=== PATIENT | female | born 1970 | race Caucasian/White ===

== ENCOUNTER → 2017-01-06 | Outpatient (CLI) | payer OTHER ==
[~2017-01-06] MED LIST: /CELE20CA; /CELE20CA PO; /ONDA4TA; ACET65TA OR; ALLE25CA OR; ALLE25CA PO; AMIT100T; AMIT10TA2 OR; AMIT50TA PO; ATIV1TAB2 OR; KETO-28 OR; KETO10TAB PO; METO10TA2; MILKSUS; MIRALEX; NEUR600T PO; NYST50SS SS; OXYB5TAB; OXYB5TAB4 OR; OXYB5TAB5 OR; OXYCO5TA PO; PERC5TAB8 PO; PERC7.5T8 OR; PERC7.5T8 PO; SYNT100T OR; SYNT100T PO; SYNT125T; TRAM50TA2 OR; VICO5TAB; VICO5TAB OR; VICO5TAB16 PO; VICODIN; ZYRT10TA2 PO
[2017-01-06 08:45] LABS: INR 0.92
[2017-01-06 08:48] LABS: MEAN CORPUSCULAR HEMOGLOBIN 29.7 pg (27.0-33.0); MEAN CORPUSCULAR HGB CONC 32.8 g/dl (32.0-36.5); MEAN CORPUSCULAR VOLUME 90.5 fl (80.0-96.0); RED CELL DISTRIBUTION WIDTH 12.8 % (11.5-14.5); WHITE BLOOD COUNT 9.4 K/mm3 (4.0-10.0)
[2017-01-06 09:19] LABS: CALCIUM LEVEL 8.4 MG/DL (8.5-10.1); CREATININE FOR GFR 1.17 MG/DL (0.55-1.02); GLOMERULAR FILTRATION RATE 52.6 (>58)
--- NOTE | 2017-01-07 12:38 | ECGEPIP ---
Stationary ECG Study [facility] Test Date: 2017-01-06 Pat Name: JAGDISH BLAIR Department: Room: - Gender: F Care Information Associate: : 1970 Requested By: Vonda DONOVAN Order Number: [id number] Reading MD: Davidson Craft Measurements Intervals [place] Rate: 59 P: 42 NV: 173 QRS: 47 QRSD: 95 T: 64 QT: 436 QTc: 433 Interpretive Statements Sinus bradycardia LA conduction disturbance? Incomplete RBBB Nonspecific ST/T-wave abnormalities Slightly different lead placement from 02/05/16 Electronically Signed On 01-07-2017 12:38:35 EDT by Davidson Craft
== END ==
LOC: M LAB 08:11
PROVIDERS: ATTEND Nurse Practitioner Women's Health
DX: Z01.818 Encounter for other preprocedural examination (principal); N39.3 Stress incontinence (female) (male)

== ENCOUNTER → 2017-02-03 | Day surgery (SDC) | payer OTHER ==
[~2017-02-03] VITALS: Ht 160 cm; Wt 68.0 kg
[~2017-02-03] MED LIST changes: +BUPIVACAINE HCL 0.5% 30 ML VIAL As Ordered ONE; +COLA100C3 PO; +ESTROGENS VAGINAL CREAM 30GM As Ordered ONE; +HYDR-3713 PO; +KETOROLAC 30 MG/ML VIAL (J1885) As Ordered ONE; +KETOROLAC 30 MG/ML VIAL (J1885) IV ONE; +LEVA500T PO; +LIDOCAINE 1% SDV INJ 30 ML VIAL As Ordered ONE; +LIDOCAINE 2% INJ 100 MG/5 ML SDV (FOR ANES.) As Ordered ONE; +LR 1,000 ML IV ONE; +LR 1,000 ML IV SCH; +METHYLENE BLUE 0.5% (5MG/ML) 10 ML AMP (PROVAYBLUE)(Q9968 PER 1MG) As Ordered ONE; +MIDAZOLAM INJ 2 MG/2 ML VIAL (J2250) As Ordered ONE; +MIRA33504 PO; +NORCO, ANEXSIA 5/325MG TABLET (HYDROcodone/ACETAMINOPHEN) As Ordered ONE; +NORCO, ANEXSIA 5/325MG TABLET (HYDROcodone/ACETAMINOPHEN) PO PRN; +ONDANSETRON 4MG/2ML VIAL (J2405) As Ordered ONE; +ONDANSETRON 4MG/2ML VIAL (J2405) IV PRN; +PERCOCET PO; +PROPOFOL 200 MG/20 ML VIAL As Ordered ONE; +fentaNYL 100 MCG/2 ML INJECTION (J3010) As Ordered ONE
[2017-02-03] MEDS: fentaNYL 100 MCG/2 ML INJECTION (J3010) IV PRN ×2 (11:14→11:30)
[2017-02-03 14:45] VITALS: BP 128/77
--- NOTE | 2017-02-04 13:28 | RO ---
DATE OF PROCEDURE: 02/03/2017 PREPROCEDURE DIAGNOSIS: Stress urinary incontinence. POSTPROCEDURE DIAGNOSIS: Stress urinary incontinence. PROCEDURE PERFORMED: Transobturator tape sling, mini sling, placement. SURGEON: Margarito Gordillo MD [employer] SALES: None. ANESTHESIA: General. COMPLICATIONS: None. ESTIMATED BLOOD LOSS: N/A. DESCRIPTION OF PROCEDURE: 46-year-old female patient that is under general anesthesia in supine modified lithotomy position. After prepping and draping the area of concern, including the entire genitalia and abdomen, we passed an 18-Italian Bassett catheter into the bladder and drained the bladder, placed it to gravity and inflated the balloon to 10 mL. We then proceeded to place local anesthesia into the anterior vaginal wall for about 10 mL, mixture of lidocaine 1% and 0.25% Marcaine. We then proceeded to place suture stitches to separate the labia minora attached to the skin, silk #3-0, and then we placed a vaginal weighted speculum. This exposed very well the anterior vaginal wall. The patient was placed in slight Trendelenburg position at 30 degrees. We then did an incision in the midline, split the urethra and anterior vaginal wall and resected with Metzenbaum scissors to the right and left of the urethra. We then proceeded to place the harpoon sling on the left side and hooked the sling of the patient. Then we placed a harpoon on the right side and also placed a trans obturator harpoon inside on the right side of the patient. We adjusted the sling by pulling on the string to the right side and the string was actually adjusted very well and touching the urethra. There was no tension at all at that moment in time. We cut the string and then closed the vagina with a #3-0 Monocryl stitch in a running fashion. We placed Estrace cream in the packing and packed the vagina with the packing. PLAN: The patient will have antibiotic and pain medication. She will followup at [facility] [place] in about 2 weeks. She will go home when voiding.
== END | disposition home or self-care (01) ==
LOC: M SDC 06:55
PROVIDERS: ATTEND Urology
DX: N39.3 Stress incontinence (female) (male) (principal); K57.30 Diverticulosis of large intestine without perforation or abscess without bleeding; E03.9 Hypothyroidism, unspecified; G43.909 Migraine, unspecified, not intractable, without status migrainosus; D68.62 Lupus anticoagulant syndrome; R94.31 Abnormal electrocardiogram [ECG] [EKG]; R06.83 Snoring; Z86.19 Personal history of other infectious and parasitic diseases; Z90.710 Acquired absence of both cervix and uterus; Z87.442 Personal history of urinary calculi; Z88.1 Allergy status to other antibiotic agents; Z88.5 Allergy status to narcotic agent; Z88.8 Allergy status to other drugs, medicaments and biological substances; Z91.048 Other nonmedicinal substance allergy status; Z79.899 Other long term (current) drug therapy
CPT/HCPCS: 57288; C1771; J0690; J1885; J2250; J2405; J3010; Q9968

== ENCOUNTER 2017-02-07 00:44 | Observation (INO) | payer OTHER ==
[~2017-02-07] VITALS: Ht 160 cm; Wt 78.8 kg
[~2017-02-07 00:44] MED LIST changes: -BUPIVACAINE HCL 0.5% 30 ML VIAL As Ordered ONE; -COLA100C3 PO; -ESTROGENS VAGINAL CREAM 30GM As Ordered ONE; -HYDR-3713 PO; -KETOROLAC 30 MG/ML VIAL (J1885) As Ordered ONE; -KETOROLAC 30 MG/ML VIAL (J1885) IV ONE; -LIDOCAINE 1% SDV INJ 30 ML VIAL As Ordered ONE; -LIDOCAINE 2% INJ 100 MG/5 ML SDV (FOR ANES.) As Ordered ONE; -LR 1,000 ML IV ONE; -LR 1,000 ML IV SCH; -METHYLENE BLUE 0.5% (5MG/ML) 10 ML AMP (PROVAYBLUE)(Q9968 PER 1MG) As Ordered ONE; -MIDAZOLAM INJ 2 MG/2 ML VIAL (J2250) As Ordered ONE; -MIRA33504 PO; -NORCO, ANEXSIA 5/325MG TABLET (HYDROcodone/ACETAMINOPHEN) As Ordered ONE; -NORCO, ANEXSIA 5/325MG TABLET (HYDROcodone/ACETAMINOPHEN) PO PRN; -ONDANSETRON 4MG/2ML VIAL (J2405) As Ordered ONE; -ONDANSETRON 4MG/2ML VIAL (J2405) IV PRN; -PROPOFOL 200 MG/20 ML VIAL As Ordered ONE; -fentaNYL 100 MCG/2 ML INJECTION (J3010) As Ordered ONE
[2017-02-07 02:00] VITALS: BP 144/98
[2017-02-07] MEDS ORDERED: HYDR-3713 PO (03:19)
[2017-02-07] MEDS ORDERED: LEVA500T PO (03:19)
[2017-02-07] MEDS ORDERED: BISACODYL 5 MG TAB PO PRN (04:45)
[2017-02-07] MEDS ORDERED: ACETAMINOPHEN TAB 650MG DOSE (2X325MG) PO PRN (04:45)
[2017-02-07] MEDS ORDERED: NORCO, ANEXSIA 5/325MG TABLET (HYDROcodone/ACETAMINOPHEN) PO PRN (04:45)
[2017-02-07] MEDS: LEVOTHYROXINE 0.1 MG TAB (100 MCG) PO SCH (05:38)
[2017-02-07] MEDS: HEPARIN SOD (PORCINE) 5000 UNITS/ML VIAL SC SCH ×3 (05:40→20:16)
[2017-02-07 06:00] VITALS: BP 103/65
[2017-02-07 06:49] LABS: BASO # 0.1 K/mm3 (0.0-0.2); BASO % 0.9 % (0.0-1.0); EOS # 0.2 K/mm3 (0.0-0.50); EOS % 3.8 % (0.0-3.0); LARGE UNSTAINED CELL # 0.1 K/mm3 (0.0-0.4); LARGE UNSTAINED CELL % 1.4 % (0.0-4.0); LYMPH # 1.9 K/mm3 (1.5-4.5); LYMPH % 28.8 % (24.0-44.0); MEAN CORPUSCULAR HEMOGLOBIN 30.2 pg (27.0-33.0); MEAN CORPUSCULAR HGB CONC 33.1 g/dl (32.0-36.5); MONO # 0.3 K/mm3 (0.0-0.8); NEUTROPHILS # 3.9 K/mm3 (1.8-7.7); NEUTROPHILS % 60.2 % (36.0-66.0); PLATELET COUNT, AUTOMATED 218 k/mm3 (150-450); RED CELL DISTRIBUTION WIDTH 13.1 % (11.5-14.5); WHITE BLOOD COUNT 6.4 K/mm3 (4.0-10.0)
[2017-02-07 07:04] LABS: ALBUMIN 2.8 GM/DL (3.2-5.2); ALKALINE PHOSPHATASE 120 U/L (45-117); ALT/SGPT 27 U/L (12-78); ANION GAP 5 MEQ/L (8-16); AST/SGOT 21 U/L (15-37); BILIRUBIN,TOTAL 0.4 MG/DL (0.2-1.0); BLOOD UREA NITROGEN 11 MG/DL (7-18); CALCIUM LEVEL 7.7 MG/DL (8.5-10.1); CARBON DIOXIDE LEVEL 28 MEQ/L (21-32); CHLORIDE LEVEL 109 MEQ/L (98-107); GLOMERULAR FILTRATION RATE > 60.0 (>58); GLUCOSE, FASTING 90 MG/DL (70-105); MAGNESIUM LEVEL 2.1 MG/DL (1.8-2.4); POTASSIUM SERUM 3.8 MEQ/L (3.5-5.1); SODIUM LEVEL 142 MEQ/L (136-145); TOTAL PROTEIN 5.6 GM/DL (6.4-8.2)
--- NOTE | 2017-02-07 07:36 | HPE ---
DATE OF ADMISSION: 02/07/2017 PRIMARY CARE PHYSICIAN: Dr. Van BARRER AND TACKER: Dr. Mejía NEUROLOGY: Dr. Valdez GASTROENTEROLOGY: The patient is scheduled to see Dr. Gonzales. CODE STATUS: Full code. CHIEF COMPLAINT: Right lower quadrant abdominal pain. HISTORY OF PRESENT ILLNESS: Ms. Bishop is a 46-year-old female with multiple past medical history who was transferred from [facility] due to right lower quadrant abdominal pain. The patient had multiple abdominal procedures in the past and the case was discussed with the surgeon multimedia educational specialist, Dr. Schuler, at [place] who stated that this is not a surgical case and she should be admitted by the hospitalist. However, at [facility], they do not have surgery multimedia educational specialist tomorrow, therefore, they transferred the patient to [facility] for observation and further management. The patient expressed that on Wednesday she underwent abdominal sling procedure which was done by Dr. Gordillo and was sent home on same day. However, on when she woke up she had right hip pain that was 7 out of 10. The patient called Dr. Gordillo's office and spoke with Sepideh (ASSISTANT AUDITOR) who asked her to take ibuprofen; however, the patient expressed that ibuprofen did not help her pain. The next day, the patient called the office again and Sepideh prescribed cyclobenzaprine, however, according to her this medication did not help. On Wednesday around 11:00 a.m. the patient started having right lower quadrant abdominal pain. The patient had one episode of bowel movement before and after the pain started, however, did not change the pain. The patient had some solid food when her abdominal pain was tolerable, however, the patient expressed that after that her abdominal pain increased. At [facility] emergency room, She received Toradol, however, did not help her pain. However, after patient received morphine and Benadryl, her pain decreased. ALLERGIES: - AZITHROMYCIN - ERYTHROMYCIN - HYDROMORPHONE - MEPERIDINE - MORPHINE - PROCHLORPERAZINE - SUMATRIPTAN - TAPE PAST MEDICAL HISTORY: 1. Bowel obstruction. 2. Chest wall pain. 3. Gallstones. 4. Herniated disc. 5. Hyperglycemia. 6. Hypothyroidism. 7. Lumbar radiculopathy. 8. Migraine headache. 9. Pericardial effusion. 10. Sciatica. PAST SURGICAL HISTORY: 1. Appendectomy. 2. Bowel surgery. 3. Cardiac procedure. 4. Cholecystectomy. 5. Discectomy for intervertebral herniated disc nucleus pulposus. 6. Hysterectomy. 7. Kidney stone. 8. Sigmoid resection. SOCIAL HISTORY: The patient lives with her . The patient has three children, two girls and one boy, who are healthy for age. The patient has one cat. The patient has not drank for the past 28 years, however, before that the patient was drinking occasionally. The patient does not smoke. The patient has no history of smoking or illicit drug use. The patient has traveled to [facility] and lived there for ten years. FAMILY HISTORY: The patient has three sisters, one of them has Prinzmetal's angina and the other one has ablation and the other has palpitations. The patient's father and mother are alive and healthy. HOME MEDICATIONS: - hydrocodone/acetaminophen one tablet by mouth every 6 hours as needed pain - amitriptyline 25 mg by mouth at bedtime - ketorolac 10 mg by mouth twice a day as needed pain - Levaquin 500 mg by mouth daily for 10 days - levothyroxine 100 mcg by mouth every morning REVIEW OF SYSTEMS: GENERAL: The patient denies fever, chills, night sweats, weight loss, weight gain. HEENT: The patient denies acute vision or hearing changes. The patient denies problems with chewing food or sinusitis. NECK: The patient denies lumps, bumps, or decreased range of motion of her neck. LUNG: patient denies dyspnea or coughing. HEART: The patient denies palpitations, racing or skipping heart beats or chest pain. NEUROLOGIC: The patient denies history or transient ischemic attack (TIA), cerebrovascular accident (CVA) or seizure-type activities. ABDOMEN: The patient expressed that she has abdominal pain at the right lower quadrant, increases with palpation. The patient has been passing gas and had two episode of bowel movement. PHYSICAL EXAMINATION: VITAL SIGNS: Temperature 97.7. Pulse 80. Respiratory rate 18. Blood pressure 144/98. Pulse oximetry 97% on room air. GENERAL APPEARANCE: The patient was lying in bed in no acute distress. The patient was awake, alert, and oriented to time, place and person. HEENT: Normocephalic, atraumatic. Pupils are equal and reactive to light. Oral mucosa is moist. NECK: Soft, supple. No thyromegaly. No jugular venous distention (JVD). HEART: Regular rate and rhythm. Normal S1, S2. No murmur, rub or gallop. LUNGS: Clear breath sounds bilaterally. Good air movement. No rales, rhonchi or crackles. ABDOMEN: Soft. Tenderness to palpation in the right lower quadrant as well as mid abdominal quadrants, however, no guarding. Positive bowel sounds in all quadrants. EXTREMITIES: No lower extremity edema, +2 pulses in both lower extremities. The patient has normal range of motion. The patient has normal strength in both upper and lower extremities (power 5/5). LABORATORY DATA: From [facility], which indicated white blood cells 11.2 , red blood cells 4.82, hemoglobin 14.4, hematocrit 42.9, MCV 88.8, MCH 29.8, MCHC 33.6, RDW 12.7, platelet count 300, MPV 11, neutrophils 76.6, lymphocytes 14.8, monocytes 5.2, eosinophils 2.1, basophils 0.9. Sodium 143, potassium 4.1, chloride 101, CO2 26, glucose 107, BUN 12, creatinine 1.1, total protein 7.1, albumin 4.4, globulin 2.7, calcium 9.7, total bilirubin 0.2, alkaline phosphatase 136, AST 31, ALT 26, anion gap 16. Urinalysis (UA) with urine color yellow, urine clarity clear, urine specific gravity 1.010, pH 6, glucose normal, bilirubin negative, ketones negative, protein negative, nitrite negative, blood 150, leukocyte esterase 25, urobilinogen normal. Amylase 60, lipase 23. Lactic acid 1.2. Prothrombin time 12.6. INR 0.94. These labs were performed on 02/06/2017. IMAGING TECHNIQUE: CT of abdomen and pelvis without contrast which indicated constipation, otherwise unremarkable CT examination of the abdomen and pelvis. ASSESSMENT AND PLAN: 1. Abdominal pain. This is possibly adhesions secondary to recent procedure ( abdominal sling procedure). Dr. Plata, urology, has been consulted and will see the patient. At this time, we will continue managing the patient's pain by her current medications. Also the patient at this time can tolerate liquid diet. Therefore, we will continue the patient on a clear liquid diet. We will continue monitoring the patient for abdominal symptoms. 2. Hypothyroidism. We will continue the patient on Synthroid 0.1 mg by mouth daily. 3. Abdominal sling procedure. The patient was started on Levaquin postoperative for ten days. We will continue the patient with Levaquin. 4. History of hyperglycemia. Based on the [place] lab, the patient's glucose is in the normal range. We will continue monitoring the patient's glucose level. 5. Migraine headache. At this time, the patient is stable. This is a chronic issue. 6. Sciatica. This is a chronic issue. The patient is stable at this time. 7. Deep vein thrombosis prophylaxis. The patient is on heparin 5000 units subcutaneous every 8 hours. My preceptor for this patient encounter was Dr. Celine Elizabeth. The preceptor was physically present in the building during the encounter and was fully available. As needed, all aspects of the patient interview, examination, medical decision making process, and medical care plan development were reviewed and approved by the preceptor. The preceptor is aware and concurs with the plan as stated in the body of this note and will attest to such by his/her cosignature. FERDINAND
[2017-02-07] MEDS: KETOROLAC TROMETHAMINE 10 MG TAB PO PRN ×2 (09:57→17:17)
--- NOTE | 2017-02-07 11:34 | SMCUROLCON ---
Urology Consultation General Date of Consultation 02/07/17 Reason For Consultation This patient is seen for Abd Rosenberg; constipation; s/p TVT (02/03/17). General surgery consultation given prior colon surgery. Full consultation dictated. PVR , UA, urine culture. History of Present Illness The patient is a -year-old with a past medical history for . Medications Current Medications Current Medications Acetaminophen (Tylenol Tab) 650 mg Q4HP PRN PO MILD PAIN OR FEVER; Start at 04:45; Stop 03/09/17 at 04:44 Acetaminophen/ Hydrocodone Bitart ([place], Anexsia 5/325) 1 tab Q6H PRN PO PAIN ; Start 02/07/17 at 04:45; Stop 02/14/17 at 04:44 Amitriptyline HCl (Elavil) 25 mg QHS PO ; Start 02/07/17 at 21:00; Stop at 20:59 Bisacodyl (Dulcolax Tab) 5 mg DAILYPRN PRN PO CONSTIPATION; Start 02/07/17 at 04:45; Stop 03/09/17 at 04:44 Heparin Sodium (Porcine) (Heparin) 5,000 units Q8H SC Last administered on 02/07 05:40; Start 02/07/17 at 06:00; Stop 02/12/17 at 05:59 Home Med (Med Rec Complete!) ASDIRECTED XX ; Start 02/07/17 at 03:30; Stop at 03:30; Status DC Ketorolac Tromethamine (ToRADol) 10 mg BIDP PRN PO PAIN Last administered on 09:57; Start 02/07/17 at 04:45; Stop 02/12/17 at 04:44 Levofloxacin (Levaquin) 500 mg DAILY@1800 PO ; Start 02/07/17 at 18:00; Stop at 17:59 Levothyroxine Sodium (Synthroid) 0.1 mg DAILY@0600 PO Last administered on 02/07 05:38; Start 02/07/17 at 06:00; Stop 03/09/17 at 05:59 Ondansetron HCl (ZOFRAN INJection) 4 mg Q6HP PRN IV NAUSEA OR VOMITING; Start 02/07/17 at 04:45; Stop 03/09/17 at 04:44 Allergies Allergies: Coded Allergies: TAPE (Verified Allergy, Intermediate, RASH, 02/03/17) Hydromorphone (Verified Allergy, Mild, RASH, 12/31/12) Meperidine (Verified Allergy, Mild, RASH, 01/20/17) Morphine (Verified Allergy, Mild, RASH, 12/31/12) Erythromycin (Unverified Allergy, Unknown, 02/05/16) Azithromycin (Verified Adverse Reaction, Mild, N/V, 12/31/12) Prochlorperazine (Verified Adverse Reaction, Mild, TREMORS, 12/31/12) Sumatriptan (Verified Adverse Reaction, Mild, CARBAJAL, 12/31/12) Vital Signs/I&O Vital Signs Date Time Temp Pulse Resp B/P (MAP) Pulse Ox O2 Delivery O2 Flow Rate FiO2 02/07/17 06:00 97.7 67 20 103/65 (78) 93 Room Air I&O- Last 24 Hours up to 6 AM 02/07/17 06:00 Intake Total 240 ml Output Total 0 ml Balance 240 ml Laboratory Data 24H Labs Laboratory Tests 2 02/07/17 06:33: White Blood Count 6.4, Red Blood Count 4.28, Hemoglobin 12.9, Hematocrit 38.9, Mean Corpuscular Volume 91.0, Mean Corpuscular Hemoglobin 30.2, Mean Corpuscular Hemoglobin Concent 33.1, Red Cell Distribution Width 13.1, Platelet Count 218, Neutrophils (%) (Auto) 60.2, Lymphocytes (%) (Auto) 28.8, Monocytes ( %) (Auto) 5.0, Eosinophils (%) (Auto) 3.8H, Basophils (%) (Auto) 0.9, Neutrophils # (Auto) 3.9, Lymphocytes # (Auto) 1.9, Monocytes # (Auto) 0.3, Eosinophils # (Auto) 0.2, Basophils # (Auto) 0.1, Large Unclassified Cells % 1.4 , Large Unclassified Cells # 0.1, Anion Gap 5L, Glomerular Filtration Rate > 60.0, Blood Urea Nitrogen 11, Creatinine 1.00, Sodium Level 142, Potassium Level 3.8, Chloride Level 109H, Carbon Dioxide Level 28, Calcium Level 7.7L, Aspartate Amino Transf (AST/SGOT) 21, Alanine Aminotransferase (ALT/SGPT) 27, Alkaline Phosphatase 120H, Total Bilirubin 0.4, Total Protein 5.6L, Albumin 2.8L , Magnesium Level 2.1, Albumin/Globulin Ratio 1.00 CBC/BMP Laboratory Tests 02/07/17 06:33 Red Blood Count 4.28, Mean Corpuscular Volume 91.0, Mean Corpuscular Hemoglobin 30.2, Mean Corpuscular Hemoglobin Concent 33.1, Red Cell Distribution Width 13.1 , Neutrophils (%) (Auto) 60.2, Lymphocytes (%) (Auto) 28.8, Monocytes (%) (Auto ) 5.0, Eosinophils (%) (Auto) 3.8 H, Basophils (%) (Auto) 0.9, Neutrophils # ( Auto) 3.9, Lymphocytes # (Auto) 1.9, Monocytes # (Auto) 0.3, Eosinophils # (Auto ) 0.2, Basophils # (Auto) 0.1, Calcium Level 7.7 L, Aspartate Amino Transf (AST/ SGOT) 21, Alanine Aminotransferase (ALT/SGPT) 27, Alkaline Phosphatase 120 H, Total Bilirubin 0.4, Total Protein 5.6 L, Albumin 2.8 L KHALIF PRADHAN MD February 07, 2017 11:34
--- NOTE | 2017-02-07 12:54 | CR ---
DATE OF CONSULTATION: 02/07/2017 This 46-year-old female was evaluated in consultation as requested by Dr. Murphy on 02/07/2017 for a 1-day history of right lower quadrant discomfort. She was evaluated at [facility] for a 1-day history of right lower quadrant discomfort. She is status post tension-free vaginal tape by Margarito Gordillo MD (02/03/2017). At present, she has no history of voiding symptoms. She is adequately emptying her bladder. There is no history of urinary tract infection, urolithiasis, flank pain, or constitutional symptoms. Having a history of bowel resection and adhesions. She was transferred to [facility] for further evaluation. Flatus is present. There is no history of nausea or vomiting. PAST MEDICAL HISTORY: Is significant for hypothyroidism, nephrolithiasis (shockwave lithotripsy), laparoscopic cholecystectomy, open appendectomy, total abdominal hysterectomy with bilateral salpingo-oophorectomy, and hemicolectomy (diverticulosis). REVIEW OF SYSTEMS: Is negative for diabetes, hypertension, cardiac or pulmonary pathology, headaches, epilepsy, cerebrovascular accident (CVA), glaucoma, peptic ulcer disease, or bloodborne diseases. CURRENT MEDICATIONS: Include: - Elavil - Levaquin - Synthroid - Dulcolax - Toradol She is allergic to ERYTHROMYCIN, MORPHINE, DEMEROL, DILAUDID, IMITREX, to which she develops rash. Socially, she is and has three children. She is a nonsmoker and does not consume alcohol. FAMILY HISTORY: Is significant for hypothyroidism on the maternal side and urothelial carcinoma of the bladder on the paternal side. General examination revealed a comfortable individual. Her heart rate was 67, respiratory rate was 20, blood pressure was 103/65, and temperature was 97.7 degrees Fahrenheit. Palpation of the head and neck failed to reveal the presence of lymphadenopathy. Auscultation of the chest was clear. Normal heart sounds. Examination of the back and abdomen were benign. Right lower quadrant and Pfannenstiel scars were noted, reflective of her prior surgery. Urine specimens have not been provided. Serum hematologic and biochemical indices determination (02/07/2017) demonstrated a hemoglobin of 12.9, white blood cell count 6.4, and a creatinine of 1.0. Computed tomography of the abdomen and pelvis without intravenous contrast (02/06/2017) demonstrated moderate amount of stool in the colon with no evidence of nephrolithiasis, hydronephrosis, or a distended bladder. ASSESSMENT: 1. Right lower quadrant discomfort. 2. Constipation. 3. History of bowel surgery. 4. Status post tension-free vaginal tape (TVT) (02/03/2017). 5. Hypothyroidism. 6. History of nephrolithiasis. PLAN: The above findings were discussed with the patient, her family, nursing staff, and hospitalist. A bladder scan postvoid residual determination, as well as a urine specimen for her analysis and culture and sensitivity, will be obtained. Treatment for constipation is recommended with either general surgery or gastroenterology consultation. No urologic intervention is required at present. Should you require additional information, please do not hesitate to contact me. Thanking you for the confidence of your referral. Sincerely, FERDINAND
[2017-02-07 14:00] VITALS: BP 114/67
[2017-02-07] MEDS ORDERED: COLA100C3 PO (16:37)
[2017-02-07] MEDS ORDERED: MIRA33504 PO (16:37)
[2017-02-07] MEDS: ONDANSETRON 4MG/2ML VIAL (J2405) IV PRN (17:16)
[2017-02-07] MEDS: LevoFLOXacin 500 MG TABLET PO SCH (18:52)
[2017-02-07] MEDS: AMITRIPTYLINE 50 MG TAB PO SCH (20:16)
--- NOTE | 2017-02-07 21:06 | DSES ---
DATE OF ADMISSION: 02/07/2017 DATE OF DISCHARGE: 02/07/2017 ATTENDING PHYSICIAN: Pat Murphy MD. PRIMARY CARE PHYSICIAN: Unknown. REFERRING PHYSICIAN: None. CONSULTING PHYSICIANS: Dr. Woody and Dr. Fernando Plata. CONDITION ON DISCHARGE: Stable. FINAL DIAGNOSIS: Abdominal pain, likely secondary to possible adhesion, possibly secondary to functional abdominal wall pain. PROCEDURES: None. HISTORY OF PRESENT ILLNESS: The patient is a 46-year-old female with a past medical history of bowel obstruction, chest wall pain, gallstones, herniated disc, hyperglycemia, hypothyroidism, lumbar radiculopathy, migraine headache, pericardial effusion and sciatica, who presented to the emergency room with right lower quadrant pain at [facility]. The patient had multiple procedures in the past and has a history of bowel adhesions at [facility]. The case was discussed with surgeon, Dr. Schuler, who is not available to see the patient at that time, and the patient was transferred over to [facility]. When patient arrived, history was acquired from patient. The patient noted that she had right lower quadrant pain that started . The patient had a recent urological procedure performed on Wednesday which was a bladder sling operation by Dr. Gordillo. The patient noted her pain has been in the right lower quadrant and has not had any constipation, diarrhea, or burning or discomfort with urination. The patient had imaging performed at [facility] which was consistent with possible constipation. HOSPITAL COURSE: 1. Abdominal pain, possibly secondary to adhesions, possibly secondary to recent urological procedure which was urologic bladder sling, possibly secondary to functional abdominal wall pain. The patient was seen and examined at the bedside. Physical revealed mild right lower quadrant abdominal pain. She has not been given chronic pain medication. She has been tolerating oral. She has not had any nausea or vomiting. The patient has been having bowel movements and has been passing gas. Imaging of the abdomen via x-ray was acquired at [facility], which was negative for any obstruction. The patient was evaluated by Dr. Fernando Plata from urology, and surgery Dr. Woody. The patient has been cleared for discharged. There is no other intervention that they have been planning. The patient was reminded to remain compliant with laxative medications. The patient will be following up with sign language interpreter who she has an appointment with on 02/09/2017. 2. Hypothyroidism. Continue with Synthroid. 3. Abdominal sling procedure. The patient has been put on Levaquin postoperatively for prophylaxis against infection. 4. History of hyperglycemia. Based on [facility], the patient's glucose was within normal range. 5. Migraine headache. Continue with current regimen. 6. Sciatica. Continue with Tylenol as needed. 7. Deep venous thrombosis (DVT) prophylaxis. She was given heparin subcutaneously. DISCHARGE MEDICATIONS: The patient has been discharged home with the following medications: - acetaminophen one tablet by mouth every six hours as needed for pain - amitriptyline 25 mg by mouth at bedtime - ketorolac 10 mg by mouth twice a day - levofloxacin 500 mg by mouth daily - levothyroxine 100 mcg by mouth every morning New medications prescribed include: - docusate 100 mg by mouth twice a day - MiraLax 17 grams by mouth daily for the next seven days DISCHARGE INSTRUCTIONS: The patient has been advised to followup with her primary care provider and sign language interpreter within the next seven days. She has an appointment to followup with them on Wednesday. The patient has been advised to remain compliant with treatment plan and medications, and to return to the emergency room if she experiences any problems. TIME SPENT ON DISCHARGE: 35 minutes.
[2017-02-07 22:00] VITALS: BP 117/78
[2017-02-08 06:00] VITALS: BP 124/61
[2017-02-08] MEDS: LEVOTHYROXINE 0.1 MG TAB (100 MCG) PO SCH (06:44)
[2017-02-08] MEDS: HEPARIN SOD (PORCINE) 5000 UNITS/ML VIAL SC SCH ×3 (06:44→21:37)
[2017-02-08 06:47] LABS: BASO # 0.1 K/mm3 (0.0-0.2); BASO % 1.1 % (0.0-1.0); EOS # 0.2 K/mm3 (0.0-0.50); EOS % 4.9 % (0.0-3.0); LARGE UNSTAINED CELL # 0.1 K/mm3 (0.0-0.4); LARGE UNSTAINED CELL % 2.1 % (0.0-4.0); LYMPH # 1.7 K/mm3 (1.5-4.5); LYMPH % 31.8 % (24.0-44.0); MEAN CORPUSCULAR HEMOGLOBIN 30.1 pg (27.0-33.0); MEAN CORPUSCULAR HGB CONC 32.8 g/dl (32.0-36.5); MEAN CORPUSCULAR VOLUME 91.7 fl (80.0-96.0); MONO # 0.3 K/mm3 (0.0-0.8); MONO % 5.5 % (0.0-5.0); NEUTROPHILS # 2.8 K/mm3 (1.8-7.7); NEUTROPHILS % 54.6 % (36.0-66.0); PLATELET COUNT, AUTOMATED 194 k/mm3 (150-450); RED CELL DISTRIBUTION WIDTH 12.9 % (11.5-14.5)
[2017-02-08 07:11] LABS: ALBUMIN 2.8 GM/DL (3.2-5.2); ALKALINE PHOSPHATASE 127 U/L (45-117); ALT/SGPT 27 U/L (12-78); ANION GAP 7 MEQ/L (8-16); AST/SGOT 25 U/L (15-37); BILIRUBIN,TOTAL 0.3 MG/DL (0.2-1.0); BLOOD UREA NITROGEN 11 MG/DL (7-18); CALCIUM LEVEL 7.9 MG/DL (8.5-10.1); CARBON DIOXIDE LEVEL 26 MEQ/L (21-32); CHLORIDE LEVEL 108 MEQ/L (98-107); CREATININE FOR GFR 1.01 MG/DL (0.55-1.02); GLOMERULAR FILTRATION RATE > 60.0 (>58); GLUCOSE, FASTING 79 MG/DL (70-105); POTASSIUM SERUM 3.9 MEQ/L (3.5-5.1); SODIUM LEVEL 141 MEQ/L (136-145); TOTAL PROTEIN 5.9 GM/DL (6.4-8.2)
--- NOTE | 2017-02-08 07:44 | REP ---
ABDOMINAL SERIES: Supine and erect views of the abdomen and pelvis demonstrate no free air. There is no compelling evidence for bowel obstruction. No significantly dilated small bowel loops are seen. No air fluid levels are seen on the upright view. Multiple metallic clips are seen in the abdomen and pelvis. Phleboliths are seen in the pelvis. An accompanying view of the chest demonstrates streaky bibasilar atelectasis/infiltrate. IMPRESSION: No free air or obstruction. Mild bibasilar atelectasis/infiltrate. Signed by Malik Vivas MD 02/08/2017 12:18 P
[2017-02-08] MEDS: MOM 30ML SUSPENSION UDC PO SCH (09:00)
[2017-02-08] MEDS: ONDANSETRON 4MG/2ML VIAL (J2405) IV PRN ×2 (10:12→17:57)
[2017-02-08] MEDS: KETOROLAC TROMETHAMINE 10 MG TAB PO PRN ×2 (10:46→18:27)
[2017-02-08] MEDS ORDERED: MOM 30ML SUSPENSION UDC PO ONE (11:00)
[2017-02-08] MEDS ORDERED: MORPHINE 2 MG/ML 1ML SYRINGE IV ONE ×2 (11:00→11:45)
[2017-02-08 11:15] VITALS: BP 140/79
[2017-02-08] MEDS ORDERED: NORCO, ANEXSIA 5/325MG TABLET (HYDROcodone/ACETAMINOPHEN) PO ONE (11:15)
[2017-02-08] MEDS ORDERED: diphenhydrAMINE 25 MG CAP PO ONE (11:15)
[2017-02-08 12:16] LABS: ALBUMIN 3.2 GM/DL (3.2-5.2); ALBUMIN/GLOBULIN RATIO 0.94 (1.00-1.93); BILIRUBIN,TOTAL 0.3 MG/DL (0.2-1.0); CALCIUM LEVEL 8.5 MG/DL (8.5-10.1); CREATININE FOR GFR 1.13 MG/DL (0.55-1.02); GLOMERULAR FILTRATION RATE 54.7 (>58); POTASSIUM SERUM 3.7 MEQ/L (3.5-5.1); TOTAL PROTEIN 6.6 GM/DL (6.4-8.2)
[2017-02-08 12:29] LABS: BASO % 0.8 % (0.0-1.0); EOS # 0.2 K/mm3 (0.0-0.50); EOS % 2.7 % (0.0-3.0); LARGE UNSTAINED CELL # 0.1 K/mm3 (0.0-0.4); LARGE UNSTAINED CELL % 1.2 % (0.0-4.0); LYMPH # 1.6 K/mm3 (1.5-4.5); LYMPH % 24.1 % (24.0-44.0); MEAN CORPUSCULAR HEMOGLOBIN 30.1 pg (27.0-33.0); MEAN CORPUSCULAR HGB CONC 33.4 g/dl (32.0-36.5); MEAN CORPUSCULAR VOLUME 90.1 fl (80.0-96.0); MONO # 0.3 K/mm3 (0.0-0.8); MONO % 4.4 % (0.0-5.0); NEUTROPHILS # 4.3 K/mm3 (1.8-7.7); NEUTROPHILS % 66.9 % (36.0-66.0); PLATELET COUNT, AUTOMATED 233 k/mm3 (150-450); RED CELL DISTRIBUTION WIDTH 12.8 % (11.5-14.5); WHITE BLOOD COUNT 6.4 K/mm3 (4.0-10.0)
[2017-02-08] MEDS: NS 1,000 ML IV SCH ×2 (13:40→21:36)
[2017-02-08] MEDS: MIRALAX *UNIT DOSE* 17GM PACKET PO SCH (13:41)
[2017-02-08] MEDS: TAMSULOSIN 0.4 MG CAP PO SCH (13:41)
[2017-02-08 14:00] VITALS: BP 132/83
--- NOTE | 2017-02-08 14:26 | IPNPDOC ---
Text Note Date of Service The patient was seen on 02/08/17. NOTE Subjective: Patient is a 46 year old female with a PMHx of Bowel obstruction s/p colectomy 2/2 adhesions, s/p Cholecystectomy, s/p Appendectomy, s/p Hysterectomy , Hx of herniated disks, Hypothyroidism and Migraine headaches who presented to [facility] from [facility] because of RLQ abdominal pain. Patient has had a bladder sing operation on 02/03/[address] Gordillo and began having symptoms on the next day. Given the patient's history of adhesions, multiple abdominal surgeries and recent urologic procedure patient was transferred to [facility] for surgical evaluation / urological evaluation. Patient was evaluated by urology and surgery on 01/25/2017 and they had cleared her for discharge. Patient was tolerating a liquid diet and was planned for discharge this morning (02/08), but began to have severe abdominal pain. Patient was seen and examined at the bedside. She noted to have RLQ abdominal pain that was very severe this morning. Objective: Vitals (See below) General: Lying in bed, no acute distress, comfortable, AAOx3 HEENT: NC, AT CVS: RRR, +S1S2 Lungs: Fair air entry b/l, -w/r/r Abdomen: Soft, ND, Tenderness at suprapubic area / RLQ, +BSx4 Extremities: +PPx4, - Edema, - Calf tenderness Assessment and plan: 1. Abdominal pain 2/2 possible adhesions, recent urological procedure, possible 2/2 nephrolithiasis - Presented with pain 1 day after urological procedure on 02/03/2017 (Bladder sling) - Physical reveals supra-pubic and RLQ pain - No elevation in WBC, No fevers - No elevation in lactic acid - No elevation in amylase and Lipase - patient is s/p Appendectomy and Cholecystectomy - Patient has had a mild elevation in her Cr this morning - UA from [facility] revealed: blood 150, leukocyte esterase 25 - Will repeat UA / Urine culture - Abdominal XR reveals no obstructive pattern - will start IV fluid hydration and Tamsulosin for dilation of ureter 2. Hypothyroidism - c/w levothyroxine 3. Abdominal sling procedure - c/w Levaquin for prophylaxis (Day #6 of 10) 4. Migraine headaches - c/w Tylenol PRN 5. Sciatica - c/w Tylenol PRN 6. DVT prophylaxis - c/w Heparin SC VS,Fishbone, I+O VS, Fishbone, I+O Laboratory Tests 02/08/17 06:22 Red Blood Count 4.22, Mean Corpuscular Volume 91.7, Mean Corpuscular Hemoglobin 30.1, Mean Corpuscular Hemoglobin Concent 32.8, Red Cell Distribution Width 12.9 , Neutrophils (%) (Auto) 54.6, Lymphocytes (%) (Auto) 31.8, Monocytes (%) (Auto ) 5.5 H, Eosinophils (%) (Auto) 4.9 H, Basophils (%) (Auto) 1.1 H, Neutrophils # (Auto) 2.8, Lymphocytes # (Auto) 1.7, Monocytes # (Auto) 0.3, Eosinophils # ( Auto) 0.2, Basophils # (Auto) 0.1, Calcium Level 7.9 L, Aspartate Amino Transf ( AST/SGOT) 25, Alanine Aminotransferase (ALT/SGPT) 27, Alkaline Phosphatase 127 H , Total Bilirubin 0.3, Total Protein 5.9 L, Albumin 2.8 L 02/08/17 11:42 Red Blood Count 4.68, Mean Corpuscular Volume 90.1, Mean Corpuscular Hemoglobin 30.1, Mean Corpuscular Hemoglobin Concent 33.4, Red Cell Distribution Width 12.8 , Neutrophils (%) (Auto) 66.9 H, Lymphocytes (%) (Auto) 24.1, Monocytes (%) ( Auto) 4.4, Eosinophils (%) (Auto) 2.7, Basophils (%) (Auto) 0.8, Neutrophils # ( Auto) 4.3, Lymphocytes # (Auto) 1.6, Monocytes # (Auto) 0.3, Eosinophils # (Auto ) 0.2, Basophils # (Auto) 0.0, Calcium Level 8.5, Aspartate Amino Transf (AST/ SGOT) 24, Alanine Aminotransferase (ALT/SGPT) 30, Alkaline Phosphatase 132 H, Total Bilirubin 0.3, Total Protein 6.6, Albumin 3.2 Vital Signs Date Time Temp Pulse Resp B/P (MAP) Pulse Ox O2 Delivery O2 Flow Rate FiO2 02/08/17 12:00 18 02/08/17 11:15 98.8 84 140/79 (99) 100 Room Air I&O- Last 24 Hours up to 6 AM 02/08/17 06:00 Intake Total 1650 ml Output Total 400 ml Balance 1250 ml KAYE FOX MD February 08, 2017 14:14
--- NOTE | 2017-02-08 17:32 | ECGEPIP ---
Stationary ECG Study Test Date: 2017-02-08 Pat Name: JAGDISH BLAIR Department: Room: [place] [address] Gender: F [employer] Rider: : 1970 Requested By: KAYE FOX Order Number: [id number] Reading MD: Esther Saldana Measurements Intervals [place] Rate: 73 P: 60 [place]: 151 QRS: 35 QRSD: 96 T: 46 QT: 383 QTc: 423 Interpretive Statements SINUS RHYTHM ST DEVIATION AND MODERATE T-WAVE ABNORMALITY, CONSIDER ANTERIOR ISCHEMIA ST ABN SEEN ALSO 01/06/17 Electronically Signed On 02-08-2017 17:31:56 EDT by Esther Saldana
[2017-02-08] MEDS: LevoFLOXacin 500 MG TABLET PO SCH (17:57)
[2017-02-08] MEDS ORDERED: NORCO, ANEXSIA 5/325MG TABLET (HYDROcodone/ACETAMINOPHEN) PO PRN (19:00)
[2017-02-08] MEDS: AMITRIPTYLINE 50 MG TAB PO SCH (21:36)
[2017-02-08 22:00] VITALS: BP_SYST 117; BP_SYST 118; BP_DIAS 62; BP_DIAS 68
[2017-02-09] MEDS: HEPARIN SOD (PORCINE) 5000 UNITS/ML VIAL SC SCH (05:29)
[2017-02-09] MEDS: LEVOTHYROXINE 0.1 MG TAB (100 MCG) PO SCH (05:29)
[2017-02-09 06:00] VITALS: BP 118/61
[2017-02-09 07:33] LABS: EOS # 0.2 K/mm3 (0.0-0.50); EOS % 4.5 % (0.0-3.0); LARGE UNSTAINED CELL # 0.1 K/mm3 (0.0-0.4); LARGE UNSTAINED CELL % 1.8 % (0.0-4.0); LYMPH # 1.5 K/mm3 (1.5-4.5); LYMPH % 32.9 % (24.0-44.0); MEAN CORPUSCULAR HEMOGLOBIN 30.3 pg (27.0-33.0); MEAN CORPUSCULAR HGB CONC 33.2 g/dl (32.0-36.5); MEAN CORPUSCULAR VOLUME 91.2 fl (80.0-96.0); MONO # 0.3 K/mm3 (0.0-0.8); MONO % 7.1 % (0.0-5.0); NEUTROPHILS # 2.2 K/mm3 (1.8-7.7); NEUTROPHILS % 52.6 % (36.0-66.0); PLATELET COUNT, AUTOMATED 200 k/mm3 (150-450); RED CELL DISTRIBUTION WIDTH 12.9 % (11.5-14.5); WHITE BLOOD COUNT 4.2 K/mm3 (4.0-10.0)
[2017-02-09 08:40] LABS: ALBUMIN 2.7 GM/DL (3.2-5.2); ALBUMIN/GLOBULIN RATIO 1.13 (1.00-1.93); BILIRUBIN,TOTAL 0.2 MG/DL (0.2-1.0); CALCIUM LEVEL 7.8 MG/DL (8.5-10.1); CREATININE FOR GFR 1.05 MG/DL (0.55-1.02); GLOMERULAR FILTRATION RATE 59.5 (>58); MAGNESIUM LEVEL 2.1 MG/DL (1.8-2.4); POTASSIUM SERUM 3.9 MEQ/L (3.5-5.1); TOTAL PROTEIN 5.1 GM/DL (6.4-8.2)
[2017-02-09] MEDS: MIRALAX *UNIT DOSE* 17GM PACKET PO SCH (09:00)
[2017-02-09] MEDS: MOM 30ML SUSPENSION UDC PO SCH (09:00)
[2017-02-09] MEDS: TAMSULOSIN 0.4 MG CAP PO SCH (09:16)
--- NOTE | 2017-02-09 17:35 | IPNPDOC ---
Subjective Date Seen The patient was seen on 02/09/17. Subjective Chief Complaint/HPI The patient is a 46-year-old female admitted with a reason for visit of Litzy Rosenberg. General: Denies: Chills, Night Sweats Constitutional: Denies: Chills, Fever Eyes: Denies: Pain, Vision change ENT: Denies: Head Aches, Ear Pain Skin: Denies: Rash, Lesions Pulmonary: Denies: Dyspnea, Cough Cardiovascular: Denies: Chest Pain, Palpitations Gastrointestinal: Denies: Nausea, Vomiting Genitourinary: Denies: Dysuria, Frequency Hematologic: Denies: Bruising, Bleeding Excessively Musculoskeletal: Denies: Neck Pain, Back Pain Objective Physical Examination General Exam: Positive: Alert, Cooperative, No Acute Distress ENT Exam: Positive: Atraumatic, Mucous membr. moist/pink Neck Exam: Negative: JVD Chest Exam: Positive: Clear to auscultation, Normal air movement Heart Exam: Positive: Rate Normal, Normal S1, Normal S2 Abdomen Exam: Positive: Soft, Negative: Tenderness Extremity Exam: Negative: Tenderness, Swelling Psych Exam: Positive: Oriented x 3 Assessment /Plan Plan/VTE VTE Prophylaxis Ordered?: Yes Plan Abdominal pain of Unclear Etiology Patient noted to have WBC wnl, no fevers Lactic acid, amylase and Lipase levels WNL Abd XR with no acute findings Patient's abdominal pain has resolved and she no longer complains of any pain, and has been tolerating a diet and passing bowel movements without any problems Hypothyroidism Continue levothyroxine Abdominal sling procedure Continue Levaquin for prophylaxis for 3 more days Migraine headaches Continue Tylenol PRN Sciatica Continue Tylenol PRN DVT prophylaxis Continue Heparin SC Disposition-the patient is to be discharged today, please refer to my colleague , Dr. Murphy's discharge summary from 02/07/17. The patient has remained stable and has had no acute changes since that time. VS, I&O, 24H, Fishbone Vital Signs/I&O Vital Signs Date Time Temp Pulse Resp B/P (MAP) Pulse Ox O2 Delivery O2 Flow Rate FiO2 02/09/17 06:00 98.9 60 14 118/61 (80) 100 Room Air I&O- Last 24 Hours up to 6 AM 02/09/17 06:00 Intake Total 2712 ml Output Total 2025 ml Balance 687 ml Laboratory Data 24H LABS Laboratory Tests 2 02/09/17 07:12: White Blood Count 4.2, Red Blood Count 3.99L, Hemoglobin 12.1#, Hematocrit 36.4 , Mean Corpuscular Volume 91.2, Mean Corpuscular Hemoglobin 30.3, Mean Corpuscular Hemoglobin Concent 33.2, Red Cell Distribution Width 12.9, Platelet Count 200, Neutrophils (%) (Auto) 52.6, Lymphocytes (%) (Auto) 32.9, Monocytes ( %) (Auto) 7.1H, Eosinophils (%) (Auto) 4.5H, Basophils (%) (Auto) 1.0, Neutrophils # (Auto) 2.2, Lymphocytes # (Auto) 1.5, Monocytes # (Auto) 0.3, Eosinophils # (Auto) 0.2, Basophils # (Auto) 0.0, Large Unclassified Cells % 1.8 , Large Unclassified Cells # 0.1, Anion Gap 7L, Glomerular Filtration Rate 59.5 , Blood Urea Nitrogen 9, Creatinine 1.05H, Sodium Level 144, Potassium Level 3.9 , Chloride Level 110H, Carbon Dioxide Level 27, Calcium Level 7.8L, Aspartate Amino Transf (AST/SGOT) 20, Alanine Aminotransferase (ALT/SGPT) 26, Alkaline Phosphatase 111, Total Bilirubin 0.2, Total Protein 5.1#L, Albumin 2.7L, Magnesium Level 2.1, Albumin/Globulin Ratio 1.13 CBC/BMP Laboratory Tests 02/09/17 07:12 Red Blood Count 3.99 L, Mean Corpuscular Volume 91.2, Mean Corpuscular Hemoglobin 30.3, Mean Corpuscular Hemoglobin Concent 33.2, Red Cell Distribution Width 12.9, Neutrophils (%) (Auto) 52.6, Lymphocytes (%) (Auto) 32.9, Monocytes (%) (Auto) 7.1 H, Eosinophils (%) (Auto) 4.5 H, Basophils (%) ( Auto) 1.0, Neutrophils # (Auto) 2.2, Lymphocytes # (Auto) 1.5, Monocytes # (Auto ) 0.3, Eosinophils # (Auto) 0.2, Basophils # (Auto) 0.0, Calcium Level 7.8 L, Aspartate Amino Transf (AST/SGOT) 20, Alanine Aminotransferase (ALT/SGPT) 26, Alkaline Phosphatase 111, Total Bilirubin 0.2, Total Protein 5.1 #L, Albumin 2.7 L Microbiology Microbiology 02/08/17 Urine Culture, Received Pending DIEGO GARCIA MD February 09, 2017 17:35
== END 2017-02-09 11:30 | disposition home or self-care (01) ==
LOC: M MS5PR 02:07 → INTOOBSV 02:07
PROVIDERS: ADMIT Hospitalist; ATTEND Internal Medicine
DX: R10.31 Right lower quadrant pain (principal); E03.9 Hypothyroidism, unspecified; Z98.890 Other specified postprocedural states; R73.9 Hyperglycemia, unspecified; G43.909 Migraine, unspecified, not intractable, without status migrainosus; M54.30 Sciatica, unspecified side; Z87.19 Personal history of other diseases of the digestive system; K59.00 Constipation, unspecified; Z79.899 Other long term (current) drug therapy; Z79.2 Long term (current) use of antibiotics; Z88.1 Allergy status to other antibiotic agents; Z88.5 Allergy status to narcotic agent; Z88.8 Allergy status to other drugs, medicaments and biological substances; Z91.048 Other nonmedicinal substance allergy status
CPT/HCPCS: 36415; 74022; 80053; 81001; 82150; 82550; 82553; 83605; 83690; 83735; 85025; 87086; 93005; 96361; 96372; 96374; 96376; J2405

== ENCOUNTER → 2017-02-23 | Outpatient (REF) | payer OTHER ==
[~2017-02-23] MED LIST changes: +COLA100C3 PO; +HYDR-3713 PO; +MIRA33504 PO
[2017-02-23 13:44] LABS: MICROSCOPIC INDICATED? MAN YES (NO)
[2017-02-23 13:45] LABS: BACTERIA, URINE LARGE AMOUNT; HYALINE CAST, URINE NONE SEEN /lpf (0-1); MICROSCOPIC EXAM PERFORMED; RBC, URINE 15-20 /hpf (0-3); SQUAMOUS EPITHELIAL CELL URINE SMALL AMOUNT /hpf (SMALL AMT)
== END ==
LOC: M SMT 12:45
PROVIDERS: ATTEND Nurse Practitioner Women's Health
DX: R30.0 Dysuria (principal)

== ENCOUNTER → 2018-09-02 | Outpatient (CLI) | payer OTHER ==
[~2018-09-02] MED LIST changes: -/CELE20CA; -/CELE20CA PO; -/ONDA4TA; -ACET65TA OR; -ALLE25CA OR; -ALLE25CA PO; -AMIT100T; -AMIT10TA2 OR; -AMIT50TA PO; -ATIV1TAB2 OR; -COLA100C3 PO; +GLUCAGON FOR INJ 1 MG VIAL (J1610) As Ordered; -HYDR-3713 PO; +ISOVUE-370 76% 100ML VIAL (Q9967) As Ordered; -KETO-28 OR; -KETO10TAB PO; -LEVA500T PO; -METO10TA2; -MILKSUS; -MIRA33504 PO; -MIRALEX; -NEUR600T PO; -NYST50SS SS; -OXYB5TAB; -OXYB5TAB4 OR; -OXYB5TAB5 OR; -OXYCO5TA PO; -PERC5TAB8 PO; -PERC7.5T8 OR; -PERC7.5T8 PO; -PERCOCET PO; -SYNT100T OR; -SYNT100T PO; -SYNT125T; -TRAM50TA2 OR; -VICO5TAB; -VICO5TAB OR; -VICO5TAB16 PO; -VICODIN; +VoLumen 0.1% SUSPENSION 450ML BOTTLE As Ordered; -ZYRT10TA2 PO
== END ==
LOC: M RAD 10:01
DX: K66.0 Peritoneal adhesions (postprocedural) (postinfection) (principal); R19.7 Diarrhea, unspecified; R10.12 Left upper quadrant pain; R10.31 Right lower quadrant pain; E55.9 Vitamin D deficiency, unspecified; Z90.49 Acquired absence of other specified parts of digestive tract; Z90.89 Acquired absence of other organs; Z90.710 Acquired absence of both cervix and uterus
CPT/HCPCS: Q9967

== ENCOUNTER → 2018-12-14 | Outpatient (CLI) | payer OTHER ==
[~2018-12-14] MED LIST changes: +/CELE20CA; +/CELE20CA PO; +/ONDA4TA; +ACET65TA OR; +ALLE25CA OR; +ALLE25CA PO; +AMIT100T; +AMIT10TA2 OR; +AMIT50TA PO; +ATIV1TAB2 OR; +COLA100C5 PO; -GLUCAGON FOR INJ 1 MG VIAL (J1610) As Ordered; +HYDR-3713 PO; -ISOVUE-370 76% 100ML VIAL (Q9967) As Ordered; +KETO-28 OR; +KETO10TAB PO; +LEVA1TAB2 PO; +METO10TA2; +MILKSUS; +MIRA33504 PO; +MIRALEX; +NEUR600T PO; +NYST50SS SS; +OXYB5TAB; +OXYB5TAB4 OR; +OXYB5TAB5 OR; +OXYCO5TA PO; +PERC5TAB8 PO; +PERC7.5T8 OR; +PERC7.5T8 PO; +PERCOCET PO; +SYNT100T OR; +SYNT100T PO; +SYNT125T; +TRAM50TA2 OR; +VICO5TAB; +VICO5TAB OR; +VICO5TAB16 PO; +VICODIN; -VoLumen 0.1% SUSPENSION 450ML BOTTLE As Ordered; +ZYRT10CA5 PO
--- NOTE | 2018-12-15 08:03 | REP ---
Visceral Doppler arterial ultrasound: History: Ultrasound Doppler of mesenteric arteries with pre and post prandial imaging. Abdominal pain left upper quadrant right lower quadrant. History of colitis. Technique: Celiac axis and superior mesenteric artery Doppler assessment is performed pre and sequentially post prandial. Findings: Normal response to fasting and meal challenge was observed. No evidence of significant stenosis. Celiac axis peak systolic flow velocity is 142 cm/sec. End-diastolic velocity of 37 cm/sec. Visceral superior mesenteric artery velocity chart: Baseline: Proximal SMA PSV 102 cm/S EDV 16 cm/S, mid SMA 152, EDV 28 10 minutes PP : Proximal SMA PSV 255 EDV 62, mid SMA PSV 298 EDV 92 20 minutes PP: Proximal SMA PSV 330 EDV 104, mid SMA PSV 298 EDV 85 30 minutes: Proximal SMA PSV 321 EDV 73, mid SMA PSV 242 EDV 42 40 minutes: Proximal SMA PSV 8306 EDV 73, mid SMA PSV 223 EDV 36 Electronically Signed by Dane Vizcaino MD 12/15/2018 07:55 A
== END ==
LOC: M RAD 10:14
PROVIDERS: ATTEND Internal Medicine Gastroenterology
DX: R10.12 Left upper quadrant pain (principal); R10.31 Right lower quadrant pain; K66.0 Peritoneal adhesions (postprocedural) (postinfection); K52.9 Noninfective gastroenteritis and colitis, unspecified

== ENCOUNTER → 2019-09-12 | Outpatient (CLI) | payer OTHER ==
[~2019-09-12] MED LIST changes: -/CELE20CA; -/CELE20CA PO; -/ONDA4TA; +CELE1CAP4; +CELE1CAP4 PO; +ONDA-1; +OXYC-517 PO; -OXYCO5TA PO; -VICO5TAB16 PO; +VICO5TAB17 PO
--- NOTE | 2019-09-12 11:18 | ECGEPIP ---
[facility] [place] Test Date: 2019-09-12 Pat Name: JAGDISH BLAIR Department: Room: - Gender: Female E D Tech: FRANKIE : 1970 Requested By: JESSICA Messina Order Number: [id number] Reading MD: Pedro Suggs Measurements Intervals [place] Rate: 69 P: 53 [place]: 144 QRS: 61 QRSD: 98 T: 67 QT: 397 QTc: 428 Interpretive Statements SINUS RHYTHM ST DEVIATION AND MODERATE T-WAVE ABNORMALITY, CONSIDER ANTERIOR ISCHEMIA ST-T wave changes seen on previous tracings as far back as 02-05-16 Electronically Signed on 09-12-2019 11:17:34 EST by Pedro Suggs
== END ==
LOC: M EKG 07:19
PROVIDERS: ATTEND Orthopaedic Surgery Hand Surgery
DX: G56.03 Carpal tunnel syndrome, bilateral upper limbs (principal)

== ENCOUNTER → 2020-10-03 | Outpatient (REF) | payer OTHER | LOC: M LAB REF 16:27 | PROVIDERS: ATTEND Orthopaedic Surgery | DX: D23.62 Other benign neoplasm of skin of left upper limb, including shoulder (principal) ==

== ENCOUNTER → 2022-12-28 | Outpatient (CLI) | payer OTHER ==
[~2022-12-28] MED LIST changes: +NYST-38 SS; -NYST50SS SS
== END ==
LOC: M RAD 07:11
PROVIDERS: ATTEND Otolaryngology
DX: J32.8 Other chronic sinusitis (principal); J34.2 Deviated nasal septum; J34.89 Other specified disorders of nose and nasal sinuses

== ENCOUNTER 2023-06-14 09:56 | Day surgery (SDC) | payer OTHER ==
[~2023-06-14] VITALS: Ht 162.6 cm; Wt 68.7 kg
[~2023-06-14 09:56] MED LIST changes: +LEVO100T5 PO; +METO1TAB32 PO; +ZOLP6.2517 PO
[2023-06-14] MEDS ORDERED: LR 1,000 ML IV SCH ×3 (10:35→16:00)
[2023-06-14] MEDS ORDERED: fentaNYL 100 MCG/2 ML INJECTION As Ordered ONE ×2 (12:07→15:07)
[2023-06-14] MEDS ORDERED: LIDOCAINE 2% 100MG/5ML SDV (FOR ANES.) As Ordered ONE (12:07)
[2023-06-14] MEDS ORDERED: propofoL 200 MG/20 ML VIAL As Ordered ONE (12:07)
[2023-06-14] MEDS ORDERED: ROCURONIUM BROMIDE 50MG/5ML VIAL As Ordered ONE (12:07)
[2023-06-14] MEDS ORDERED: MIDAZOLAM INJ 2MG/2ML VIAL As Ordered ONE (12:07)
[2023-06-14] MEDS ORDERED: LIDOCAINE W/EPINEPHRINE 1% 20ML VIAL As Ordered ONE (12:53)
[2023-06-14] MEDS ORDERED: COCAINE 4% 4ML NASAL SOLUTION BTL As Ordered ONE (12:53)
[2023-06-14] MEDS ORDERED: OXYMETAZOLINE 0.05% NASAL SPRAY (AFRIN) As Ordered ONE ×2 (12:53→15:05)
[2023-06-14] MEDS ORDERED: PHENYLephrine 500MCG 5ML (100MCG/ML) SYRINGE As Ordered ONE (14:07)
[2023-06-14] MEDS ORDERED: ACETAMINOPHEN 1000MG 100ML IV BAG As Ordered ONE (14:16)
[2023-06-14] MEDS ORDERED: SUGAMMADEX SODIUM 500 MG/5 ML VIAL (BRIDION) As Ordered ONE (14:16)
[2023-06-14] MEDS ORDERED: KETOROLAC 60MG 2ML VIAL As Ordered ONE (14:16)
[2023-06-14] MEDS ORDERED: ONDANSETRON 4MG 2ML VIAL As Ordered ONE (14:16)
[2023-06-14] MEDS ORDERED: ESMOLOL INJ 100MG/10ML VIAL As Ordered ONE (14:41)
[2023-06-14] MEDS ORDERED: oxyCODONE 5MG TAB PO PRN (15:50)
[2023-06-14] MEDS ORDERED: ONDANSETRON 4MG 2ML VIAL IV PRN ×2 (15:50→16:00)
[2023-06-14] MEDS ORDERED: traMADol 50 MG TAB PO PRN (16:00)
[2023-06-14] MEDS: fentaNYL 100 MCG/2 ML INJECTION IV PRN ×3 (16:10→16:33)
[2023-06-14 18:32] LABS: CK-MB VALUE MASS < 1.0 NG/ML (<3.6)
[2023-06-14 18:34] LABS: CPK CREATINE PHOSPHOKINASE 80 U/L (34-145); MB/CK RELATIVE INDEX 1.25 (< OR =4)
[2023-06-14] MEDS ORDERED: METOCLOPRAMIDE INJ 10MG/2ML VIAL IV PRN (19:00)
[2023-06-14 19:10] VITALS: BP 133/82; TEMP 98.9; O2SAT 94
== END 2023-06-14 20:05 | disposition home or self-care (01) ==
LOC: M SDC 09:56
PROVIDERS: ATTEND Otolaryngology
DX: J32.2 Chronic ethmoidal sinusitis (principal); J32.0 Chronic maxillary sinusitis; J32.1 Chronic frontal sinusitis; J34.89 Other specified disorders of nose and nasal sinuses; E03.9 Hypothyroidism, unspecified; Z79.890 Hormone replacement therapy; Z79.899 Other long term (current) drug therapy; Z88.1 Allergy status to other antibiotic agents; Z88.5 Allergy status to narcotic agent; Z88.8 Allergy status to other drugs, medicaments and biological substances; Z91.048 Other nonmedicinal substance allergy status
CPT/HCPCS: 31253; 31267; 36415; 61782; 82550; 82553; 84484; 88305; 93005; A6024; C9143; J0131; J1100; J1805; J1885; J2250; J2371; J2405; J2765; J3010

== ENCOUNTER → 2025-06-07 | Outpatient (REF) ==
[~2025-06-07] MED LIST changes: -ZOLP6.2517 PO; +ZOLP6.2526 PO
[2025-06-07 19:23] LABS: LABILE ALKPHOS 78.0 U/L; STABLE ALKPHOS 53.0 U/L
[2025-06-07 19:24] LABS: % LABILE ALKALINE PHOSPHATASE 59.5 %
== END ==
LOC: M CAHLAB 18:08
DX: Z13.89 Encounter for screening for other disorder (principal)